=== PATIENT | female | born 2000 | race Caucasian/White ===

== ENCOUNTER → 2021-03-14 14:35 | Outpatient (CLI) | payer OTHER, SELFPAY ==
[2021-03-14 16:17] LABS: Estradiol 63.2 pg/mL; Follicle Stimulating Hormone 6.6 mIU/mL; Luteinizing Hormone 8.7 mIU/mL; Prolactin 10.6 ng/mL; Thyroid Stim Hormone (TSH) 0.68 uIU/mL (0.358-3.74)
[2021-03-18 16:29] LABS: Testosterone Free 2.7 pg/mL (0.0-4.2)
[2021-03-20 14:10] LABS: 17-Hydroxyprogesterone 50 ng/dL (.)
== END ==
PROVIDERS: Visit Provider Student in an Organized Health Care Education/Training Program
DX: N93.9 Abnormal uterine and vaginal bleeding, unspecified (principal)
CPT/HCPCS: 36415; 82627; 82670; 83001; 83002; 83498; 84146; 84402; 84443; 82626

== ENCOUNTER 2021-07-22 17:28 | Outpatient (CLI) | payer OTHER, SELFPAY ==
[2021-07-29 13:58] LABS: HPV Reflexed? NOT INDICATED
== END 2021-07-22 23:59 | disposition home or self-care (01) ==
LOC: LABSPEC 17:29
PROVIDERS: Visit Provider Student in an Organized Health Care Education/Training Program
DX: Z12.4 Encounter for screening for malignant neoplasm of cervix (principal)
CPT/HCPCS: 88175; G0145